=== PATIENT | male | born 1955 | race Caucasian/White ===

== ENCOUNTER 2021-10-16 05:47 | Emergency (ER) | payer MEDICARE, OTHER ==
[2021-10-16] MEDS ORDERED: SODIUM BICARBONATE 8.4% INJ 50 ML SYRINGE ONE (05:48)
[2021-10-16] MEDS ORDERED: EPINEPHrine 1MG/10ML SYRINGE 1.5IN ONE (05:48)
[2021-10-16] MEDS ORDERED: DEXTROSE 50% 50 ML SYRINGE As Ordered ONE ×2 (05:54→05:55)
== END 2021-10-16 07:38 | disposition expired ==
LOC: M ED 05:47 → EDBD 05:47 → M ED 07:38
DX: R41.82 Altered mental status, unspecified; J84.10 Pulmonary fibrosis, unspecified; Z99.81 Dependence on supplemental oxygen